=== PATIENT | male | born 1990 | race African-American/Black ===

== ENCOUNTER 2017-02-18 13:58 | Emergency (ER) | payer SELFPAY ==
[2017-02-18 14:14] VITALS: BP 144/101
[2017-02-18] MEDS ORDERED: IBUPROFEN 800 MG TABLET PO ONE (14:29)
--- NOTE | 2017-02-18 14:33 | ER Document Report ---
HPI - HPI Patient complains to provider of: toe pain Pain Level: 5 Context: Patient is a 26-year-old male presents emergency Department complaining of left toe pain. Patient states that he was at [place] yesterday when he jumped onto a wakeboard and got his fourth and fifth toes caught in between the board. Patient admits to pain with difficulty walking. Otherwise he is able to bear weight on this foot. No evidence of wound, swelling. Denies past medical history - DERM Skin Color: Normal Past Medical History - Social History Smoking Status: Current Every Day Smoker Family History: Reviewed & Not Pertinent Patient has suicidal ideation: No Patient has homicidal ideation: No Renal/ Medical History: Denies: Hx Peritoneal Dialysis Vertical Provider Document - CONSTITUTIONAL Agree With Documented VS: Yes Exam Limitations: No Limitations General Appearance: WD/WN, No Apparent Distress - INFECTION CONTROL TRAVEL OUTSIDE OF THE [place] IN LAST 30 DAYS: No - RESPIRATORY O2 Sat by Pulse Oximetry: 97 - MUSCULOSKELETAL/EXTREMETIES Musculoskeletal/Extremeties: Tender - To movement of the fifth toe on the left foot, No Edema. negative: Eccymosis Notes: No limit to range of motion of the toes except for the rice toe. Full range of motion of the ankle. Negative Homans. - NEURO Level of Consciousness: Awake, Alert, Appropriate Motor/Sensory: No Motor Deficit, No Sensory Deficit - DERM Integumentary: Warm, Dry, No Rash. negative: Laceration Course - Re-evaluation Re-evalutation: 02/18/17 15:35 Patient c/o toe pain. no evidence of fracture, no wounds evaluated. stable for d /c home - Vital Signs Vital signs: Temp Pulse Resp BP Pulse Ox 98.4 F 94 16 144/101 H 97 02/18/17 14:13 02/18/17 14:13 02/18/17 14:13 02/18/17 14:13 02/18/17 14:13 - Diagnostic Test Radiology reviewed: Image reviewed, Reports reviewed Discharge - Discharge Clinical Impression: Toe pain Condition: Good Disposition: HOME, SELF-CARE Instructions: Ck Taping (toes) ([facility]), Sprained Toe ([facility]), Use of Over-The- Counter Ibuprofen ([facility]) Forms: Elevated Blood Pressure
== END 2017-02-18 15:41 | disposition home or self-care (01) ==
LOC: ER 13:58
DX: M79.675 Pain in left toe(s) (principal); R26.2 Difficulty in walking, not elsewhere classified; X58.XXXA Exposure to other specified factors, initial encounter; F17.200 Nicotine dependence, unspecified, uncomplicated
CPT/HCPCS: 99283

== ENCOUNTER 2019-02-02 20:02 | Emergency (ER) | payer SELFPAY ==
[2019-02-02] MEDS ORDERED: CETIRIZINE 10 MG TABLET PO ONE (22:24)
[2019-02-02] MEDS ORDERED: ACETAMINOPHEN 325 MG TABLET PO ONE (22:24)
[2019-02-02] MEDS ORDERED: IBUPROFEN 600 MG TABLET PO ONE (22:24)
--- NOTE | 2019-02-02 22:26 | ER Document Report ---
HPI - HPI Time Seen by Provider: 02/02/19 22:19 Pain Level: 4 Context: Patient is a 28-year-old male who presents the emergency department with a chief complaint of a sore throat. He states that he is unsure as to whether or not he has a fever - CONSTITUTIONAL Constitutional: REPORTS: Fever - EENT EENT: REPORTS: Sore Throat, Nasal Drainage-Clear, Congestion. DENIES: Ear Pain - NEURO Neurology: REPORTS: Headache - RESPIRATORY Respiratory: REPORTS: Coughing. DENIES: Trouble Breathing - MUSCULOSKELETAL Musculoskeletal: DENIES: Extremity pain - DERM Skin Color: Normal Skin Problems: None Past Medical History - Social History Smoking Status: Current Every Day Smoker Family History: Reviewed & Not Pertinent Pulmonary Medical History: Reports: Hx Asthma Renal/ Medical History: Denies: Hx Peritoneal Dialysis Past Surgical History: Reports: Hx Appendectomy Vertical Provider Document - CONSTITUTIONAL Agree With Documented VS: Yes Exam Limitations: No Limitations - INFECTION CONTROL TRAVEL OUTSIDE OF THE [place] IN LAST 30 DAYS: No - HEENT HEENT: Atraumatic, Normocephalic, PERRLA, Pharyngeal Exudate, Pharyngeal Tenderness, Pharyngeal Erythema. negative: Tympanic Membrane Red, Tympanic Membrane Bulging - NECK Neck: Normal Inspection, Lymphadenopathy-Left, Lymphadenopathy-Right - RESPIRATORY Respiratory: No Respiratory Distress - CARDIOVASCULAR Cardiovascular: Regular Rate, Regular Rhythm Pulses: Normal: Radial - MUSCULOSKELETAL/EXTREMETIES Musculoskeletal/Extremeties: FROM - NEURO Level of Consciousness: Awake, Alert, Appropriate Motor/Sensory: No Motor Deficit, No Sensory Deficit - DERM Integumentary: Warm, Dry Course - Re-evaluation Re-evalutation: 02/02/19 23:32 Patient's rapid strep and flu tests are all negative, but he does have tonsillar exudate and lymphadenopathy noted with a fever at home. He will be treated with penicillin here in the emergency department. Throat culture will be sent. I do not suspect peritonsillar abscess. Verbal discharge instructions were given to the patient. They verbalized understanding. They are stable for discharge. - Vital Signs Vital signs: Temp Pulse Resp BP Pulse Ox 99.5 F 96 18 156/100 H 98 02/02/19 20:08 02/02/19 20:08 02/02/19 20:08 02/02/19 20:08 02/02/19 20:08 Discharge - Discharge Clinical Impression: Sore throat Fever Qualifiers: Fever type: unspecified Qualified Code(s): R50.9 - Fever, unspecified Condition: Stable Disposition: HOME, SELF-CARE Additional Instructions: You have been diagnosed with strep throat. You have been treated with a dose of penicillin here in the emergency department and do not need any additional antibiotics. You have also been given a dose of steroids to help with your throat discomfort. Please continue to take ibuprofen 600 mg every 6 hours or Tylenol 1000 mg every 6 hours as needed for throat discomfort. You can also gargle with salt water. Continue to drink plenty of fluids. Follow-up with your primary care doctor in the next several days. Return if you become unable to swallow, have difficulty breathing, pass out, have persistent vomiting that prevents you from being able to tolerate fluids, or have any other symptoms that are concerning to you.
[2019-02-02 23:25] LABS: A TYPE INFLUENZA AG NEGATIVE (NEGATIVE); B INFLUENZA AG NEGATIVE (NEGATIVE)
[2019-02-02] MEDS ORDERED: PENICILLIN G BENZATHINE 1.2 MILLION UNIT/2 ML DISP.SYRIN IM ONE (23:36)
[2019-02-03 00:51] VITALS: BP 130/85
== END 2019-02-03 00:31 | disposition home or self-care (01) ==
LOC: ER 20:02
DX: J02.9 Acute pharyngitis, unspecified (principal); R50.9 Fever, unspecified; R51 Headache; R05 Cough; F17.200 Nicotine dependence, unspecified, uncomplicated
CPT/HCPCS: 99283; 96372; 87070; 87880; 87077; 87804; J0561